=== PATIENT | male | born 1945 | race Caucasian/White ===

== ENCOUNTER → 2017-11-10 | Outpatient (CLI) | payer MEDICARE, OTHER ==
[2017-11-10] MEDS: BARIUM SULF 2% 450 ML BTL (BERRY SMOOTHIE) PO ×2 (10:44)
[2017-11-10] MEDS: SOD CHLORIDE 0.9% 100 ML (12:40)
[2017-11-10] MEDS: IODIXANOL LOCM 100 ML BTL (12:40)
== END | disposition home or self-care (01) ==
LOC: C/S 10:08
DX: R10.31 Right lower quadrant pain (principal); E11.8 Type 2 diabetes mellitus with unspecified complications
CPT/HCPCS: 74177

== ENCOUNTER 2018-01-19 06:37 | Observation (INO) | payer MEDICARE, OTHER ==
[2018-01-19] MEDS ORDERED: SUCCINYLCHOLINE CHLORIDE 100 MG/5 ML SYG IV (08:14)
[2018-01-19] MEDS ORDERED: LIDOCAINE 2% (SDV) 5 ML INJ (08:14)
[2018-01-19] MEDS ORDERED: PROPOFOL 20 ML (08:14)
[2018-01-19] MEDS ORDERED: ROCURONIUM 50 MG INJ (08:14)
[2018-01-19] MEDS ORDERED: ROPIVACAINE 0.5 % 30 ML VIAL (08:15)
[2018-01-19] MEDS ORDERED: FENTAnyl 50 MCG/ML VIAL (08:20)
[2018-01-19] MEDS ORDERED: CEFAZOLIN 1 GM INJ (08:37)
[2018-01-19] MEDS ORDERED: FAMOTIDINE 20 MG INJ (08:37)
[2018-01-19] MEDS ORDERED: ONDANSETRON 4 MG INJ (08:37)
[2018-01-19] MEDS ORDERED: EPHEDrine SULFATE 50 MG/5 ML SYG (08:44)
[2018-01-19] MEDS: BUPIVACAINE 0.25%/EPI (SDV) 10 ML INJ (08:58)
[2018-01-19] MEDS ORDERED: LIDOCAINE 1% (STERILE-PAK) 30 ML INJ (09:02)
[2018-01-19] MEDS ORDERED: GLYCOPYRROLATE 0.4 MG INJ (09:51)
[2018-01-19] MEDS ORDERED: NEOSTIGMINE 3 MG/3 ML SYRINGE (09:51)
[2018-01-19] MEDS ORDERED: FENTAnyl 50 MCG/ML VIAL IV (10:00)
[2018-01-19] MEDS ORDERED: DIPHENHYDRAMINE 50 MG INJ IV (10:00)
[2018-01-19] MEDS ORDERED: PROCHLORPERAZINE 10 MG INJ IV (10:00)
[2018-01-19] MEDS ORDERED: OXYCODONE/ACETAMINOPHEN (5/325) TAB PO (10:00)
[2018-01-19] MEDS ORDERED: MEPERIDINE 25 MG INJ IV (10:00)
[2018-01-19] MEDS ORDERED: KETOROLAC 30 MG INJ (10:02)
[2018-01-19] MEDS ORDERED: ACETAMINOPHEN 325 MG TAB PO (10:30)
[2018-01-19] MEDS ORDERED: ONDANSETRON 4 MG INJ IV (10:30)
[2018-01-19] MEDS: ONDANSETRON 4 MG INJ IV (11:25)
[2018-01-19] MEDS: HYDROmorphONE 1 MG/5 ML IV SYRINGE IV (11:26)
[2018-01-19] MEDS: HYDROCODONE/APAP (5/325) TAB PO ×2 (15:44→23:30)
[2018-01-19] MEDS: NPH, HUMAN INSULIN ISOPHANE 3ML VIAL SC (20:49)
[2018-01-20] MEDS: morphine 4 MG/ML VIAL IV ×2 (01:50→04:32)
[2018-01-20 06:07] LABS: ADD MAN DIFF? NO
[2018-01-20 06:08] LABS: WHITE BLOOD COUNT 10.7 10^3/ul (4.8-10.8)
[2018-01-20 06:08] LABS: BASOPHIL # 0.1 10^3/ul (0.0-0.1); BASOPHILS % 0.5 % (0.0-2.0); EOSINOPHILS # 0.2 10^3/ul (0.0-0.5); EOSINOPHILS % 1.7 % (0.0-7.0); HEMATOCRIT 39.1 % (42.0-52.0); HEMOGLOBIN 12.8 g/dl (14.0-18.0); LYMPHOCYTES # 0.8 10^3/ul (0.8-2.9); LYMPHOCYTES % 7.8 % (15.0-51.0); MEAN CORPUSCULAR HEMOGLOBIN 30.6 pg (29.0-33.0); MEAN CORPUSCULAR HGB CONC 32.7 g/dl (32.0-37.0); MEAN CORPUSCULAR VOLUME 93.5 fl (82.0-101.0); MONOCYTE # 0.9 10^3/ul (0.3-0.9); MONOCYTES % 8.4 % (0.0-11.0); NEUTROPHIL # 8.7 10^3/ul (1.6-7.5); NEUTROPHILS % 81.2 % (39.0-77.0); PLATELET COUNT 328 10^3/UL (140-415); RED BLOOD COUNT 4.18 10^6/ul (4.70-6.10); RED CELL DISTRIBUTION WIDTH 12.7 % (11.5-14.5)
[2018-01-20 07:15] LABS: ANION GAP 9 (5-13); BLOOD UREA NITROGEN 16 mg/dl (7-20); CALCIUM 9.1 mg/dl (8.4-10.2); CARBON DIOXIDE 27 mmol/L (21-31); CHLORIDE 104 mmol/L (97-110); CREATININE 1.03 mg/dl (0.61-1.24); GLUCOSE 242 mg/dl (70-220); POTASSIUM 4.3 mmol/L (3.5-5.1); SODIUM 140 mmol/L (135-144)
[2018-01-20] MEDS: LITHIUM CARBONATE 300 MG CAP PO (08:04)
[2018-01-20] MEDS: IBUPROFEN 600 MG TAB PO ×2 (08:05→17:16)
[2018-01-20] MEDS: NPH, HUMAN INSULIN ISOPHANE 3ML VIAL SC (08:07)
[2018-01-20 08:28] LABS: ADD UMIC NO; UR ASCORBIC ACID NEGATIVE (NEGATIVE); UR BILIRUBIN (Dip) NEGATIVE (NEGATIVE); UR BLOOD (Dip) NEGATIVE (NEGATIVE); UR CLARITY CLEAR (CLEAR); UR COLOR STRAW (YELLOW); UR GLUCOSE (Dip) 3+ mg/dL (NEGATIVE); UR KETONES (Dip) TRACE mg/dL (NEGATIVE); UR LEUKOCYTE ESTERASE (Dip) NEGATIVE Leu/ul (NEGATIVE); UR NITRITE (Dip) NEGATIVE (NEGATIVE); UR SPECIFIC GRAVITY (Dip) 1.012 (1.003-1.030); UR TOTAL PROTEIN (Dip) NEGATIVE (NEGATIVE); UR UROBILINOGEN (Dip) NEGATIVE (NEGATIVE)
[2018-01-20] MEDS: HYDROCODONE/APAP (5/325) TAB PO (13:31)
== END 2018-01-20 18:40 | disposition home or self-care (01) ==
LOC: SDS 06:37 → REC 10:19 → 2NE 11:35
PROVIDERS: Surgery
DX: K40.90 Unilateral inguinal hernia, without obstruction or gangrene, not specified as recurrent (principal); K43.9 Ventral hernia without obstruction or gangrene; E11.9 Type 2 diabetes mellitus without complications; I10 Essential (primary) hypertension; N40.0 Benign prostatic hyperplasia without lower urinary tract symptoms; E78.5 Hyperlipidemia, unspecified; E66.9 Obesity, unspecified; Z68.35 Body mass index [BMI] 35.0-35.9, adult; Z23 Encounter for immunization
CPT/HCPCS: 49650; 80048; 81003; 82962; 85025; 90686; 97162; 99217

== ENCOUNTER 2018-01-30 21:33 | Inpatient (IN) | payer MEDICARE, OTHER ==
[2018-01-30 23:06] LABS: ADD MAN DIFF? NO
[2018-01-30] MEDS: morphine 4 MG/ML VIAL IV ×2 (23:06→23:58)
[2018-01-30] MEDS: ONDANSETRON 4 MG INJ IV ×2 (23:06→23:58)
[2018-01-30] MEDS: SOD CHLORIDE 0.9% 1,000 ML IV (23:07)
[2018-01-30 23:10] LABS: BASOPHILS % 0.4 % (0.0-2.0); EOSINOPHILS # 0.1 10^3/ul (0.0-0.5); EOSINOPHILS % 0.5 % (0.0-7.0); HEMOGLOBIN 11.7 g/dl (14.0-18.0); LYMPHOCYTES # 0.7 10^3/ul (0.8-2.9); LYMPHOCYTES % 6.8 % (15.0-51.0); MEAN CORPUSCULAR HEMOGLOBIN 30.8 pg (29.0-33.0); MEAN CORPUSCULAR HGB CONC 33.4 g/dl (32.0-37.0); MEAN CORPUSCULAR VOLUME 92.1 fl (82.0-101.0); MEAN PLATELET VOLUME 10.3 fl (7.4-10.4); MONOCYTE # 0.5 10^3/ul (0.3-0.9); MONOCYTES % 5.5 % (0.0-11.0); NEUTROPHIL # 8.4 10^3/ul (1.6-7.5); NEUTROPHILS % 86.4 % (39.0-77.0); PLATELET COUNT 331 10^3/UL (140-415); RED CELL DISTRIBUTION WIDTH 12.8 % (11.5-14.5)
[2018-01-30 23:10] LABS: WHITE BLOOD COUNT 9.7 10^3/ul (4.8-10.8)
[2018-01-30 23:30] LABS: INR 1.02; PROTIME 13.5 Sec (11.9-14.9); PT RATIO 1.1
[2018-01-30 23:33] LABS: ALANINE AMINOTRANSFERASE 38 IU/L (13-69); ALBUMIN/GLOBULIN RATIO 1.29; ALKALINE PHOSPHATASE 112 IU/L (42-121); ANION GAP 11 (5-13); ASPARTATE AMINO TRANSFERASE 33 IU/L (15-46); BILIRUBIN,INDIRECT 0.8 mg/dl (0-1.1); BILIRUBIN,TOTAL 0.8 mg/dl (0.2-1.3); BLOOD UREA NITROGEN 24 mg/dl (7-20); CALCIUM 9.6 mg/dl (8.4-10.2); CARBON DIOXIDE 23 mmol/L (21-31); CHLORIDE 106 mmol/L (97-110); LIPASE 114 U/L (23-300); POTASSIUM 4.7 mmol/L (3.5-5.1); SODIUM 140 mmol/L (135-144); TOTAL PROTEIN 7.1 g/dl (6.1-8.1)
[2018-01-30 23:43] LABS: GLUCOSE 429 mg/dl (70-220); TROPONIN-I 0.017 ng/ml (0.000-0.120)
[2018-01-31] MEDS: morphine 4 MG/ML VIAL IV (02:10)
[2018-01-31] MEDS: PHENAZOPYRIDINE 100 MG TAB PO (02:27)
[2018-01-31] MEDS: HYDROCODONE/APAP (5/325) TAB PO ×2 (04:50→20:28)
[2018-01-31] MEDS ORDERED: GLUCOSE GEL 15 GRAM TUBE BUCCAL (05:00)
[2018-01-31] MEDS ORDERED: DEXTROSE 50% 50 ML SYRINGE IV (05:00)
[2018-01-31] MEDS ORDERED: ONDANSETRON 4 MG TAB PO (05:00)
[2018-01-31] MEDS ORDERED: GLUCAGON 1 MG INJ IM (05:00)
[2018-01-31] MEDS ORDERED: NACL 0.9% 3 ML SYG IV (05:00)
[2018-01-31] MEDS ORDERED: GLUCOSE GEL 15 GRAM TUBE PO ×2 (05:00)
[2018-01-31 06:59] LABS: INR 0.97
[2018-01-31 07:00] LABS: PARTIAL THROMBOPLASTIN TIME 22.1 Sec (23.0-35.0); THROMBIN TIME 16.9 SEC (13.8-19.1)
[2018-01-31 07:02] LABS: INR 0.99; PROTIME 13.2 Sec (11.9-14.9)
[2018-01-31 07:14] LABS: PLATELET COUNT 359 10^3/UL (140-415)
[2018-01-31] MEDS: AMLODIPINE 5 MG TAB PO (08:40)
[2018-01-31] MEDS: LISINOPRIL 10 MG TAB PO (08:40)
[2018-01-31] MEDS: ATENOLOL 25 MG TAB PO (08:41)
[2018-01-31] MEDS: LITHIUM CARBONATE 300 MG CAP PO (08:41)
[2018-01-31] MEDS: FAMOTIDINE 20 MG TAB PO ×2 (08:42→20:28)
[2018-01-31] MEDS: NPH, HUMAN INSULIN ISOPHANE 3ML VIAL SC ×2 (08:52→20:41)
[2018-01-31 08:53] LABS: PARTIAL THROMBOPLASTIN TIME > 180.0 Sec (23.0-35.0)
[2018-01-31] MEDS: INSULIN ASPART [NOVOLOG] 3 ML PEN SC ×7 (08:53→20:30)
[2018-01-31] MEDS: ACCU-CHEK XX ×3 (10:00→20:31)
[2018-01-31] MEDS: ACETAMINOPHEN 325 MG TAB PO (12:47)
[2018-01-31] MEDS: TAMSULOSIN (SR) 0.4 MG CAP PO (20:28)
[2018-01-31] MEDS: ATORVASTATIN 40 MG TAB PO (20:28)
[2018-01-31] MEDS: ZOLPIDEM 5 MG TAB PO (20:28)
[2018-02-01] MEDS: ACCU-CHEK XX ×4 (01:51→20:00)
[2018-02-01] MEDS: DEXTROSE 50% 50 ML SYRINGE IV (01:58)
[2018-02-01 05:35] LABS: ADD MAN DIFF? NO
[2018-02-01 05:57] LABS: BASOPHILS % 0.4 % (0.0-2.0); EOSINOPHILS # 0.4 10^3/ul (0.0-0.5); EOSINOPHILS % 3.8 % (0.0-7.0); HEMATOCRIT 28.8 % (42.0-52.0); HEMOGLOBIN 9.3 g/dl (14.0-18.0); LYMPHOCYTES # 1.5 10^3/ul (0.8-2.9); LYMPHOCYTES % 14.7 % (15.0-51.0); MEAN CORPUSCULAR HGB CONC 32.3 g/dl (32.0-37.0); MEAN PLATELET VOLUME 9.3 fl (7.4-10.4); MONOCYTE # 0.9 10^3/ul (0.3-0.9); MONOCYTES % 9.3 % (0.0-11.0); NEUTROPHIL # 7.1 10^3/ul (1.6-7.5); NEUTROPHILS % 71.5 % (39.0-77.0); PLATELET COUNT 286 10^3/UL (140-415); RED CELL DISTRIBUTION WIDTH 13.2 % (11.5-14.5)
[2018-02-01 06:30] LABS: ALANINE AMINOTRANSFERASE 29 IU/L (13-69); ALBUMIN 3.1 g/dl (3.3-4.9); ALBUMIN/GLOBULIN RATIO 1.14; ALKALINE PHOSPHATASE 78 IU/L (42-121); ANION GAP 7 (5-13); ASPARTATE AMINO TRANSFERASE 25 IU/L (15-46); BILIRUBIN,INDIRECT 0.8 mg/dl (0-1.1); BILIRUBIN,TOTAL 0.8 mg/dl (0.2-1.3); BLOOD UREA NITROGEN 29 mg/dl (7-20); CARBON DIOXIDE 28 mmol/L (21-31); CHLORIDE 106 mmol/L (97-110); CREATININE 1.05 mg/dl (0.61-1.24); GLUCOSE 94 mg/dl (70-220); POTASSIUM 4.2 mmol/L (3.5-5.1); SODIUM 141 mmol/L (135-144); TOTAL PROTEIN 5.8 g/dl (6.1-8.1)
[2018-02-01 06:50] LABS: HEMOGLOBIN A1C 7.5 % (0-5.9)
[2018-02-01] MEDS: INSULIN ASPART [NOVOLOG] 3 ML PEN SC ×7 (08:00→20:45)
[2018-02-01] MEDS: LISINOPRIL 10 MG TAB PO (08:41)
[2018-02-01] MEDS: LITHIUM CARBONATE 300 MG CAP PO (08:42)
[2018-02-01] MEDS: AMLODIPINE 5 MG TAB PO (08:42)
[2018-02-01] MEDS: FAMOTIDINE 20 MG TAB PO ×2 (08:42→20:45)
[2018-02-01] MEDS: ATENOLOL 25 MG TAB PO (08:42)
[2018-02-01] MEDS: NPH, HUMAN INSULIN ISOPHANE 3ML VIAL SC ×2 (08:47→21:17)
[2018-02-01] MEDS: TAMSULOSIN (SR) 0.4 MG CAP PO (20:44)
[2018-02-01] MEDS: FERROUS SULFATE (EC) 325 MG TAB PO (20:44)
[2018-02-01] MEDS: ATORVASTATIN 40 MG TAB PO (20:45)
[2018-02-01] MEDS: HYDROCODONE/APAP (5/325) TAB PO ×2 (21:58→22:51)
[2018-02-02] MEDS: ACCU-CHEK XX ×4 (01:37→20:43)
[2018-02-02 05:30] LABS: ADD MAN DIFF? NO
[2018-02-02 05:44] LABS: WHITE BLOOD COUNT 12.3 10^3/ul (4.8-10.8)
[2018-02-02 05:44] LABS: BASOPHILS % 0.3 % (0.0-2.0); EOSINOPHILS # 0.4 10^3/ul (0.0-0.5); EOSINOPHILS % 3.1 % (0.0-7.0); HEMATOCRIT 27.7 % (42.0-52.0); LYMPHOCYTES # 1.4 10^3/ul (0.8-2.9); LYMPHOCYTES % 11.3 % (15.0-51.0); MEAN CORPUSCULAR HEMOGLOBIN 30.9 pg (29.0-33.0); MEAN CORPUSCULAR HGB CONC 32.5 g/dl (32.0-37.0); MEAN CORPUSCULAR VOLUME 95.2 fl (82.0-101.0); MEAN PLATELET VOLUME 9.2 fl (7.4-10.4); MONOCYTE # 1.3 10^3/ul (0.3-0.9); MONOCYTES % 10.7 % (0.0-11.0); NEUTROPHIL # 9.1 10^3/ul (1.6-7.5); NEUTROPHILS % 74.4 % (39.0-77.0); PLATELET COUNT 276 10^3/UL (140-415); RED BLOOD COUNT 2.91 10^6/ul (4.70-6.10); RED CELL DISTRIBUTION WIDTH 12.8 % (11.5-14.5)
[2018-02-02] MEDS: DOCUSATE SODIUM 100 MG CAP PO (06:08)
[2018-02-02] MEDS: INSULIN ASPART [NOVOLOG] 3 ML PEN SC ×7 (07:52→20:43)
[2018-02-02] MEDS: NPH, HUMAN INSULIN ISOPHANE 3ML VIAL SC ×2 (07:55→20:49)
[2018-02-02] MEDS: FERROUS SULFATE (EC) 325 MG TAB PO ×2 (09:22→20:42)
[2018-02-02] MEDS: FAMOTIDINE 20 MG TAB PO ×2 (09:22→20:42)
[2018-02-02] MEDS: LISINOPRIL 10 MG TAB PO (09:22)
[2018-02-02] MEDS: LITHIUM CARBONATE 300 MG CAP PO (09:22)
[2018-02-02] MEDS: ATENOLOL 25 MG TAB PO (09:23)
[2018-02-02] MEDS: AMLODIPINE 5 MG TAB PO (09:23)
[2018-02-02 12:43] LABS: ADD UMIC YES; UR ASCORBIC ACID NEGATIVE (NEGATIVE); UR BILIRUBIN (Dip) NEGATIVE (NEGATIVE); UR BLOOD (Dip) 3+ mg/dL (NEGATIVE); UR CLARITY CLEAR (CLEAR); UR COLOR STRAW (YELLOW); UR GLUCOSE (Dip) NEGATIVE (NEGATIVE); UR KETONES (Dip) NEGATIVE (NEGATIVE); UR LEUKOCYTE ESTERASE (Dip) TRACE Leu/ul (NEGATIVE); UR NITRITE (Dip) NEGATIVE (NEGATIVE); UR RBC > 182 /HPF (0-5); UR SPECIFIC GRAVITY (Dip) 1.004 (1.003-1.030); UR TOTAL PROTEIN (Dip) NEGATIVE (NEGATIVE); UR UROBILINOGEN (Dip) NEGATIVE (NEGATIVE); UR WBC 14 /HPF (0-5)
[2018-02-02] MEDS: HYDROCODONE/APAP (5/325) TAB PO (13:30)
[2018-02-02] MEDS: ATORVASTATIN 40 MG TAB PO (20:42)
[2018-02-02] MEDS: TAMSULOSIN (SR) 0.4 MG CAP PO (20:42)
[2018-02-03] MEDS: ACCU-CHEK XX ×4 (02:00→20:56)
[2018-02-03] MEDS: DOCUSATE SODIUM 100 MG CAP PO ×2 (02:06→20:35)
[2018-02-03] MEDS: HYDROCODONE/APAP (5/325) TAB PO (05:56)
[2018-02-03 06:13] LABS: ADD MAN DIFF? NO
[2018-02-03 06:22] LABS: HEMATOCRIT 30.3 % (42.0-52.0); HEMOGLOBIN 9.9 g/dl (14.0-18.0); RED BLOOD COUNT 3.18 10^6/ul (4.70-6.10)
[2018-02-03 06:23] LABS: BASOPHILS % 0.4 % (0.0-2.0); EOSINOPHILS # 0.4 10^3/ul (0.0-0.5); EOSINOPHILS % 3.2 % (0.0-7.0); LYMPHOCYTES # 1.2 10^3/ul (0.8-2.9); LYMPHOCYTES % 10.9 % (15.0-51.0); MEAN CORPUSCULAR HEMOGLOBIN 31.1 pg (29.0-33.0); MEAN CORPUSCULAR HGB CONC 32.7 g/dl (32.0-37.0); MEAN CORPUSCULAR VOLUME 95.3 fl (82.0-101.0); MEAN PLATELET VOLUME 9.2 fl (7.4-10.4); MONOCYTES % 8.9 % (0.0-11.0); NEUTROPHIL # 8.4 10^3/ul (1.6-7.5); NEUTROPHILS % 76.2 % (39.0-77.0); PLATELET COUNT 308 10^3/UL (140-415); RED CELL DISTRIBUTION WIDTH 12.6 % (11.5-14.5)
[2018-02-03 07:02] LABS: ADD UMIC YES; UR ASCORBIC ACID NEGATIVE (NEGATIVE); UR BACTERIA FEW /HPF (NONE SEEN); UR BILIRUBIN (Dip) NEGATIVE (NEGATIVE); UR BLOOD (Dip) 3+ mg/dL (NEGATIVE); UR CLARITY CLEAR (CLEAR); UR COLOR STRAW (YELLOW); UR GLUCOSE (Dip) NEGATIVE (NEGATIVE); UR KETONES (Dip) NEGATIVE (NEGATIVE); UR LEUKOCYTE ESTERASE (Dip) TRACE Leu/ul (NEGATIVE); UR NITRITE (Dip) NEGATIVE (NEGATIVE); UR RBC > 182 /HPF (0-5); UR SPECIFIC GRAVITY (Dip) 1.005 (1.003-1.030); UR TOTAL PROTEIN (Dip) NEGATIVE (NEGATIVE); UR UROBILINOGEN (Dip) NEGATIVE (NEGATIVE); UR WBC 7 /HPF (0-5)
[2018-02-03] MEDS: NPH, HUMAN INSULIN ISOPHANE 3ML VIAL SC ×2 (07:47→20:54)
[2018-02-03] MEDS: INSULIN ASPART [NOVOLOG] 3 ML PEN SC ×7 (07:48→20:54)
[2018-02-03] MEDS: FAMOTIDINE 20 MG TAB PO ×2 (09:34→20:31)
[2018-02-03] MEDS: LITHIUM CARBONATE 300 MG CAP PO (09:34)
[2018-02-03] MEDS: FERROUS SULFATE (EC) 325 MG TAB PO ×2 (09:34→20:31)
[2018-02-03] MEDS: ATENOLOL 25 MG TAB PO (09:34)
[2018-02-03] MEDS: LISINOPRIL 10 MG TAB PO (09:35)
[2018-02-03] MEDS: AMLODIPINE 5 MG TAB PO (09:35)
[2018-02-03] MEDS ORDERED: BISMUTH SUBSALICYLATE PO (11:30)
[2018-02-03] MEDS ORDERED: BISMUTH SUBSALICYLATE 240 ML BTL PO (14:30)
[2018-02-03] MEDS: TAMSULOSIN (SR) 0.4 MG CAP PO (20:31)
[2018-02-03] MEDS: ATORVASTATIN 40 MG TAB PO (20:31)
[2018-02-04] MEDS: HYDROCODONE/APAP (5/325) TAB PO (01:28)
[2018-02-04] MEDS: ACCU-CHEK XX ×3 (02:30→14:00)
[2018-02-04 06:50] LABS: ALANINE AMINOTRANSFERASE 24 IU/L (13-69); ALBUMIN/GLOBULIN RATIO 1.03; ALKALINE PHOSPHATASE 91 IU/L (42-121); ANION GAP 6 (5-13); ASPARTATE AMINO TRANSFERASE 17 IU/L (15-46); BILIRUBIN,INDIRECT 0.9 mg/dl (0-1.1); BILIRUBIN,TOTAL 0.9 mg/dl (0.2-1.3); BLOOD UREA NITROGEN 22 mg/dl (7-20); CALCIUM 8.9 mg/dl (8.4-10.2); CARBON DIOXIDE 28 mmol/L (21-31); CHLORIDE 104 mmol/L (97-110); CREATININE 0.94 mg/dl (0.61-1.24); GLUCOSE 172 mg/dl (70-220); POTASSIUM 4.9 mmol/L (3.5-5.1); SODIUM 138 mmol/L (135-144); TOTAL PROTEIN 5.9 g/dl (6.1-8.1)
[2018-02-04] MEDS: FERROUS SULFATE (EC) 325 MG TAB PO (08:03)
[2018-02-04] MEDS: LITHIUM CARBONATE 300 MG CAP PO (08:03)
[2018-02-04] MEDS: ATENOLOL 25 MG TAB PO (08:04)
[2018-02-04] MEDS: LISINOPRIL 10 MG TAB PO (08:04)
[2018-02-04] MEDS: FAMOTIDINE 20 MG TAB PO (08:04)
[2018-02-04] MEDS: AMLODIPINE 5 MG TAB PO (08:04)
[2018-02-04] MEDS: NPH, HUMAN INSULIN ISOPHANE 3ML VIAL SC (08:10)
[2018-02-04] MEDS: INSULIN ASPART [NOVOLOG] 3 ML PEN SC ×6 (08:11→17:21)
== END 2018-02-04 19:35 | disposition home or self-care (01) | DRG 696 ==
LOC: E/R 21:33 → 6WM 01-31 01:59
PROC: 0T2BX0Z Change Drainage Device in Bladder, External Approach (ICD-10-PCS; principal; 2018-01-31)
DX: R31.0 Gross hematuria (principal); D62 Acute posthemorrhagic anemia; E11.65 Type 2 diabetes mellitus with hyperglycemia; I10 Essential (primary) hypertension; E78.00 Pure hypercholesterolemia, unspecified; I25.10 Atherosclerotic heart disease of native coronary artery without angina pectoris; K59.00 Constipation, unspecified; N40.0 Benign prostatic hyperplasia without lower urinary tract symptoms; F31.9 Bipolar disorder, unspecified; Z79.02 Long term (current) use of antithrombotics/antiplatelets; Z95.5 Presence of coronary angioplasty implant and graft; Z79.4 Long term (current) use of insulin
CPT/HCPCS: 36415; 74176; 80053; 81001; 82962; 83036; 83690; 84484; 85025; 85049; 85610; 85670; 85730; 87081; 88104; 88107; 93005; 96374; 96375; 96376; 97162; 99285-25; G0378

== ENCOUNTER 2018-02-06 23:11 | Inpatient (IN) | payer MEDICARE, OTHER ==
[2018-02-06] MEDS: SODIUM CHLORIDE 0.9% 1L BAG IV* (23:44)
[2018-02-06] MEDS: CEFEPIME 2GM/50 ML (PMX) 50 ML IVPB (23:44)
[2018-02-06 23:45] LABS: ADD MAN DIFF? NO
[2018-02-06] MEDS: ONDANSETRON 4 MG INJ IV (23:45)
[2018-02-06] MEDS: morphine 4 MG/ML VIAL IV (23:45)
[2018-02-06] MEDS: ACETAMINOPHEN 325 MG TAB PO (23:46)
[2018-02-06 23:47] LABS: WHITE BLOOD COUNT 15.6 10^3/ul (4.8-10.8)
[2018-02-06 23:47] LABS: BASOPHIL # 0.1 10^3/ul (0.0-0.1); BASOPHILS % 0.3 % (0.0-2.0); EOSINOPHILS # 0.1 10^3/ul (0.0-0.5); EOSINOPHILS % 0.4 % (0.0-7.0); HEMATOCRIT 27.7 % (42.0-52.0); HEMOGLOBIN 9.1 g/dl (14.0-18.0); LYMPHOCYTES # 0.8 10^3/ul (0.8-2.9); LYMPHOCYTES % 5.2 % (15.0-51.0); MEAN CORPUSCULAR HEMOGLOBIN 30.8 pg (29.0-33.0); MEAN CORPUSCULAR HGB CONC 32.9 g/dl (32.0-37.0); MEAN CORPUSCULAR VOLUME 93.9 fl (82.0-101.0); MEAN PLATELET VOLUME 9.3 fl (7.4-10.4); MONOCYTE # 1.4 10^3/ul (0.3-0.9); MONOCYTES % 8.8 % (0.0-11.0); NEUTROPHIL # 13.2 10^3/ul (1.6-7.5); NEUTROPHILS % 84.7 % (39.0-77.0); PLATELET COUNT 439 10^3/UL (140-415); RED BLOOD COUNT 2.95 10^6/ul (4.70-6.10); RED CELL DISTRIBUTION WIDTH 12.6 % (11.5-14.5)
[2018-02-07 00:05] LABS: ALANINE AMINOTRANSFERASE 20 IU/L (13-69); ALBUMIN 3.4 g/dl (3.3-4.9); ALBUMIN/GLOBULIN RATIO 1.13; ALKALINE PHOSPHATASE 126 IU/L (42-121); ANION GAP 17 (5-13); ASPARTATE AMINO TRANSFERASE 17 IU/L (15-46); BILIRUBIN,INDIRECT 1.1 mg/dl (0-1.1); BILIRUBIN,TOTAL 1.1 mg/dl (0.2-1.3); BLOOD UREA NITROGEN 25 mg/dl (7-20); CALCIUM 9.2 mg/dl (8.4-10.2); CARBON DIOXIDE 20 mmol/L (21-31); CHLORIDE 99 mmol/L (97-110); CREATININE 1.17 mg/dl (0.61-1.24); POTASSIUM 4.8 mmol/L (3.5-5.1); SODIUM 136 mmol/L (135-144); TOTAL PROTEIN 6.4 g/dl (6.1-8.1)
[2018-02-07 00:06] LABS: INR 1.04; PROTIME 13.7 Sec (11.9-14.9); PT RATIO 1.1
[2018-02-07 00:07] LABS: PARTIAL THROMBOPLASTIN TIME 26.9 Sec (23.0-35.0)
[2018-02-07 00:13] LABS: GLUCOSE 468 mg/dl (70-220)
[2018-02-07 00:16] LABS: TROPONIN-I < 0.012 ng/ml (0.000-0.120)
[2018-02-07 00:29] LABS: ADD UMIC YES; UR ASCORBIC ACID NEGATIVE (NEGATIVE); UR BILIRUBIN (Dip) NEGATIVE (NEGATIVE); UR GLUCOSE (Dip) 3+ mg/dL (NEGATIVE); UR KETONES (Dip) TRACE mg/dL (NEGATIVE); UR LEUKOCYTE ESTERASE (Dip) NEGATIVE Leu/ul (NEGATIVE); UR NITRITE (Dip) NEGATIVE (NEGATIVE); UR TOTAL PROTEIN (Dip) 3+ mg/dl (NEGATIVE); UR UROBILINOGEN (Dip) NEGATIVE (NEGATIVE)
[2018-02-07] MEDS: VANCOMYCIN 1 GM (PMX) 250 ML IVPB (00:46)
[2018-02-07 01:00] LABS: UR BLOOD (Dip) 3+ mg/dL (NEGATIVE); UR CLARITY TURBID (CLEAR); UR COLOR RED (YELLOW); UR RBC > 182 /HPF (0-5); UR WBC 132 /HPF (0-5)
[2018-02-07] MEDS ORDERED: GLUCOSE GEL 15 GRAM TUBE BUCCAL (04:30)
[2018-02-07] MEDS ORDERED: DOCUSATE SODIUM 100 MG CAP PO (04:30)
[2018-02-07] MEDS ORDERED: LORAZEPAM 0.5 MG TAB PO (04:30)
[2018-02-07] MEDS ORDERED: GLUCAGON 1 MG INJ IM (04:30)
[2018-02-07] MEDS ORDERED: DEXTROSE 50% 50 ML SYRINGE IV ×2 (04:30)
[2018-02-07] MEDS ORDERED: NACL 0.9% 3 ML SYG IV (04:30)
[2018-02-07] MEDS ORDERED: GLUCOSE GEL 15 GRAM TUBE PO ×2 (04:30)
[2018-02-07] MEDS ORDERED: ONDANSETRON 4 MG TAB PO (04:30)
[2018-02-07] MEDS: FOSFOMYCIN 3 GM PACKET PO (05:24)
[2018-02-07] MEDS: INSULIN ASPART [NOVOLOG] 3 ML PEN SC ×7 (07:54→21:26)
[2018-02-07] MEDS: INSULIN GLARGINE [LANTus] (100 UNITS/ML) SYG SC (07:55)
[2018-02-07] MEDS: ENOXAPARIN 40 MG/0.4 ML SYG SC (09:00)
[2018-02-07 09:16] LABS: LACTIC ACID 1.3 mmol/L (0.5-2.0)
[2018-02-07] MEDS: LISINOPRIL 10 MG TAB PO (09:42)
[2018-02-07] MEDS: ATENOLOL 25 MG TAB PO (09:42)
[2018-02-07] MEDS: ASPIRIN 81 MG TAB PO (09:42)
[2018-02-07] MEDS: AMLODIPINE 5 MG TAB PO (09:42)
[2018-02-07] MEDS: LITHIUM CARBONATE 300 MG CAP PO (09:42)
[2018-02-07] MEDS: FAMOTIDINE 20 MG TAB PO ×2 (09:42→20:52)
[2018-02-07] MEDS: CEFEPIME 2GM/50 ML (PMX) 50 ML IVPB ×2 (09:43→21:21)
[2018-02-07] MEDS: HYDROCODONE/APAP (5/325) TAB PO (09:52)
[2018-02-07] MEDS: ACCU-CHEK XX ×3 (10:05→20:02)
[2018-02-07 10:47] LABS: ADD UMIC YES; UR ASCORBIC ACID NEGATIVE (NEGATIVE); UR BILIRUBIN (Dip) NEGATIVE (NEGATIVE); UR BLOOD (Dip) 3+ mg/dL (NEGATIVE); UR CLARITY CLOUDY (CLEAR); UR COLOR AMBER (YELLOW); UR GLUCOSE (Dip) 3+ mg/dL (NEGATIVE); UR KETONES (Dip) TRACE mg/dL (NEGATIVE); UR LEUKOCYTE ESTERASE (Dip) NEGATIVE Leu/ul (NEGATIVE); UR NITRITE (Dip) NEGATIVE (NEGATIVE); UR SPECIFIC GRAVITY (Dip) 1.027 (1.003-1.030); UR TOTAL PROTEIN (Dip) 3+ mg/dl (NEGATIVE); UR UROBILINOGEN (Dip) NEGATIVE (NEGATIVE); URINE RBCS >200 /HPF (0)
[2018-02-07] MEDS: SOD CHLORIDE 0.9% 250 ML IV* (12:37)
[2018-02-07] MEDS: ACETAMINOPHEN 325 MG TAB PO (13:54)
[2018-02-07] MEDS: NPH, HUMAN INSULIN ISOPHANE 3ML VIAL SC (20:00)
[2018-02-07] MEDS: ATORVASTATIN 40 MG TAB PO (20:52)
[2018-02-07] MEDS: TAMSULOSIN (SR) 0.4 MG CAP PO (20:52)
[2018-02-08] MEDS: ACCU-CHEK XX ×4 (02:00→20:05)
[2018-02-08 06:44] LABS: ADD MAN DIFF? NO
[2018-02-08] MEDS ORDERED: NEOSTIGMINE 3 MG/3 ML SYRINGE (07:00)
[2018-02-08] MEDS ORDERED: FENTAnyl 50 MCG/ML VIAL (07:00)
[2018-02-08] MEDS ORDERED: ROCURONIUM 50 MG INJ (07:00)
[2018-02-08] MEDS ORDERED: CEFAZOLIN 1 GM INJ (07:00)
[2018-02-08] MEDS ORDERED: LIDOCAINE 2% (SDV) 5 ML INJ (07:00)
[2018-02-08] MEDS ORDERED: ONDANSETRON 4 MG INJ (07:00)
[2018-02-08] MEDS ORDERED: PROPOFOL 200 MG INJ (07:00)
[2018-02-08] MEDS ORDERED: GLYCOPYRROLATE 0.4 MG INJ (07:00)
[2018-02-08 07:03] LABS: BASOPHILS % 0.3 % (0.0-2.0); EOSINOPHILS # 0.1 10^3/ul (0.0-0.5); EOSINOPHILS % 0.6 % (0.0-7.0); HEMATOCRIT 25.6 % (42.0-52.0); HEMOGLOBIN 8.4 g/dl (14.0-18.0); LYMPHOCYTES # 0.9 10^3/ul (0.8-2.9); LYMPHOCYTES % 5.5 % (15.0-51.0); MEAN CORPUSCULAR HEMOGLOBIN 30.8 pg (29.0-33.0); MEAN CORPUSCULAR HGB CONC 32.8 g/dl (32.0-37.0); MEAN CORPUSCULAR VOLUME 93.8 fl (82.0-101.0); MEAN PLATELET VOLUME 9.3 fl (7.4-10.4); MONOCYTE # 1.5 10^3/ul (0.3-0.9); MONOCYTES % 9.4 % (0.0-11.0); NEUTROPHIL # 13.1 10^3/ul (1.6-7.5); NEUTROPHILS % 83.6 % (39.0-77.0); PLATELET COUNT 385 10^3/UL (140-415); RED BLOOD COUNT 2.73 10^6/ul (4.70-6.10); RED CELL DISTRIBUTION WIDTH 13.5 % (11.5-14.5)
[2018-02-08 07:03] LABS: WHITE BLOOD COUNT 15.6 10^3/ul (4.8-10.8)
[2018-02-08 07:32] LABS: ALANINE AMINOTRANSFERASE 19 IU/L (13-69); ALBUMIN 2.9 g/dl (3.3-4.9); ALBUMIN/GLOBULIN RATIO 1.07; ALKALINE PHOSPHATASE 106 IU/L (42-121); ANION GAP 11 (5-13); ASPARTATE AMINO TRANSFERASE 14 IU/L (15-46); BILIRUBIN,INDIRECT 1.2 mg/dl (0-1.1); BILIRUBIN,TOTAL 1.2 mg/dl (0.2-1.3); BLOOD UREA NITROGEN 21 mg/dl (7-20); CALCIUM 8.7 mg/dl (8.4-10.2); CARBON DIOXIDE 25 mmol/L (21-31); CHLORIDE 103 mmol/L (97-110); CREATININE 1.09 mg/dl (0.61-1.24); GLUCOSE 268 mg/dl (70-220); POTASSIUM 4.7 mmol/L (3.5-5.1); SODIUM 139 mmol/L (135-144); TOTAL PROTEIN 5.6 g/dl (6.1-8.1)
[2018-02-08] MEDS: INSULIN ASPART [NOVOLOG] 3 ML PEN SC ×8 (07:35→21:26)
[2018-02-08 07:45] LABS: HEMOGLOBIN A1C 7.1 % (0-5.9)
[2018-02-08] MEDS: LISINOPRIL 10 MG TAB PO ×2 (08:36→21:22)
[2018-02-08] MEDS: AMLODIPINE 5 MG TAB PO (08:37)
[2018-02-08] MEDS: CEFEPIME 2GM/50 ML (PMX) 50 ML IVPB (08:37)
[2018-02-08] MEDS: FAMOTIDINE 20 MG TAB PO ×2 (08:37→21:17)
[2018-02-08] MEDS: LITHIUM CARBONATE 300 MG CAP PO (08:37)
[2018-02-08] MEDS: NPH, HUMAN INSULIN ISOPHANE 3ML VIAL SC ×2 (08:37→21:24)
[2018-02-08] MEDS: ATENOLOL 25 MG TAB PO (08:37)
[2018-02-08] MEDS: ASPIRIN 81 MG TAB PO (08:38)
[2018-02-08 14:54] LABS: IMMEDIATE SPIN CROSSMATCH 1 4
[2018-02-08] MEDS ORDERED: HYDROCODONE/APAP (5/325) TAB PO (15:30)
[2018-02-08] MEDS: HYDROmorphONE 1 MG/5 ML IV SYRINGE IV ×2 (15:51→16:01)
[2018-02-08] MEDS: ONDANSETRON 4 MG INJ IV (15:51)
[2018-02-08] MEDS ORDERED: DIPHENHYDRAMINE 50 MG INJ IV (16:00)
[2018-02-08] MEDS ORDERED: FENTAnyl 50 MCG/ML VIAL IV ×3 (16:00)
[2018-02-08] MEDS ORDERED: LORAZEPAM 2 MG INJ IV ×2 (16:00→17:14)
[2018-02-08] MEDS ORDERED: LABETALOL HCL 20MG INJ IV (16:00)
[2018-02-08] MEDS ORDERED: OXYCODONE/ACETAMINOPHEN (5/325) TAB PO ×2 (16:00)
[2018-02-08] MEDS ORDERED: hydrALAzine 20 MG INJ IV (16:00)
[2018-02-08] MEDS ORDERED: METOCLOPRAMIDE 10 MG INJ IV (16:00)
[2018-02-08] MEDS ORDERED: MEPERIDINE 25 MG INJ IV (16:00)
[2018-02-08] MEDS ORDERED: HYDROmorphONE 1 MG/5 ML IV SYRINGE IV (16:00)
[2018-02-08] MEDS ORDERED: EPHEDrine SULFATE 50 MG/5 ML SYG IV (16:00)
[2018-02-08] MEDS: CEFTRIAXONE 1 GM/50 ML (PMX) 50 ML IVPB (16:18)
[2018-02-08] MEDS: DEXTROSE 5%-0.45% NACL 1,000 ML IV (16:57)
[2018-02-08] MEDS: LORAZEPAM 4 MG/ML VIAL IV (17:24)
[2018-02-08] MEDS ORDERED: HALOPERIDOL 5 MG INJ IM (18:30)
[2018-02-08] MEDS: LACTATED RINGER'S 1,000 ML IV (18:31)
[2018-02-08] MEDS: ATORVASTATIN 40 MG TAB PO (21:17)
[2018-02-08] MEDS: DOCUSATE SODIUM 100 MG CAP PO (21:19)
[2018-02-09] MEDS: ACCU-CHEK XX ×4 (02:00→20:56)
[2018-02-09 05:16] LABS: ADD MAN DIFF? NO
[2018-02-09 05:32] LABS: WHITE BLOOD COUNT 13.8 10^3/ul (4.8-10.8)
[2018-02-09 05:32] LABS: BASOPHILS % 0.3 % (0.0-2.0); EOSINOPHILS % 0.1 % (0.0-7.0); HEMATOCRIT 27.4 % (42.0-52.0); HEMOGLOBIN 9.3 g/dl (14.0-18.0); LYMPHOCYTES # 0.7 10^3/ul (0.8-2.9); LYMPHOCYTES % 4.8 % (15.0-51.0); MEAN CORPUSCULAR HEMOGLOBIN 30.6 pg (29.0-33.0); MEAN CORPUSCULAR HGB CONC 33.9 g/dl (32.0-37.0); MEAN CORPUSCULAR VOLUME 90.1 fl (82.0-101.0); MEAN PLATELET VOLUME 9.3 fl (7.4-10.4); MONOCYTE # 0.9 10^3/ul (0.3-0.9); MONOCYTES % 6.6 % (0.0-11.0); NEUTROPHIL # 12.1 10^3/ul (1.6-7.5); NEUTROPHILS % 87.5 % (39.0-77.0); PLATELET COUNT 368 10^3/UL (140-415); RED BLOOD COUNT 3.04 10^6/ul (4.70-6.10); RED CELL DISTRIBUTION WIDTH 13.9 % (11.5-14.5)
[2018-02-09 06:32] LABS: ANION GAP 8 (5-13); BLOOD UREA NITROGEN 21 mg/dl (7-20); CALCIUM 8.6 mg/dl (8.4-10.2); CARBON DIOXIDE 25 mmol/L (21-31); CHLORIDE 106 mmol/L (97-110); CREATININE 0.98 mg/dl (0.61-1.24); GLUCOSE 227 mg/dl (70-220); POTASSIUM 4.9 mmol/L (3.5-5.1); SODIUM 139 mmol/L (135-144)
[2018-02-09 06:40] LABS: LITHIUM 0.4 mmol/L (0.6-1.3)
[2018-02-09] MEDS: INSULIN ASPART [NOVOLOG] 3 ML PEN SC ×7 (08:06→20:56)
[2018-02-09] MEDS: NPH, HUMAN INSULIN ISOPHANE 3ML VIAL SC ×2 (08:08→20:38)
[2018-02-09] MEDS: ASPIRIN 81 MG TAB PO (08:54)
[2018-02-09] MEDS: ATENOLOL 25 MG TAB PO (08:54)
[2018-02-09] MEDS: DOCUSATE SODIUM 100 MG CAP PO ×2 (08:54→20:54)
[2018-02-09] MEDS: LISINOPRIL 10 MG TAB PO ×2 (08:54→20:55)
[2018-02-09] MEDS: CEPASTAT LOZENGE MT (08:55)
[2018-02-09] MEDS: LITHIUM CARBONATE 300 MG CAP PO (08:55)
[2018-02-09] MEDS: FAMOTIDINE 20 MG TAB PO ×2 (08:58→20:55)
[2018-02-09] MEDS: MAGNESIUM HYDROXIDE 30ML CUP PO (08:58)
[2018-02-09] MEDS: AMLODIPINE 2.5 MG TAB PO (09:13)
[2018-02-09] MEDS: LITHIUM CARBONATE 150 MG CAP PO (10:23)
[2018-02-09] MEDS: LACTATED RINGER'S 1,000 ML IV (14:51)
[2018-02-09] MEDS: CEFTRIAXONE 1 GM/50 ML (PMX) 50 ML IVPB (15:28)
[2018-02-09] MEDS: ATORVASTATIN 40 MG TAB PO (20:55)
[2018-02-10] MEDS: ACCU-CHEK XX ×4 (02:00→20:00)
[2018-02-10 07:17] LABS: ADD MAN DIFF? NO
[2018-02-10 07:24] LABS: WHITE BLOOD COUNT 8.2 10^3/ul (4.8-10.8)
[2018-02-10 07:24] LABS: BASOPHILS % 0.5 % (0.0-2.0); EOSINOPHILS # 0.7 10^3/ul (0.0-0.5); EOSINOPHILS % 8.8 % (0.0-7.0); HEMATOCRIT 27.7 % (42.0-52.0); HEMOGLOBIN 9.1 g/dl (14.0-18.0); LYMPHOCYTES # 1.1 10^3/ul (0.8-2.9); LYMPHOCYTES % 13.9 % (15.0-51.0); MEAN CORPUSCULAR HEMOGLOBIN 30.7 pg (29.0-33.0); MEAN CORPUSCULAR HGB CONC 32.9 g/dl (32.0-37.0); MEAN CORPUSCULAR VOLUME 93.6 fl (82.0-101.0); MEAN PLATELET VOLUME 9.1 fl (7.4-10.4); MONOCYTE # 0.7 10^3/ul (0.3-0.9); MONOCYTES % 8.8 % (0.0-11.0); NEUTROPHIL # 5.5 10^3/ul (1.6-7.5); NEUTROPHILS % 66.7 % (39.0-77.0); PLATELET COUNT 375 10^3/UL (140-415); RED BLOOD COUNT 2.96 10^6/ul (4.70-6.10); RED CELL DISTRIBUTION WIDTH 13.7 % (11.5-14.5)
[2018-02-10 07:40] LABS: ANION GAP 4 (5-13); BLOOD UREA NITROGEN 22 mg/dl (7-20); CALCIUM 8.5 mg/dl (8.4-10.2); CARBON DIOXIDE 28 mmol/L (21-31); CHLORIDE 107 mmol/L (97-110); CREATININE 0.99 mg/dl (0.61-1.24); GLUCOSE 78 mg/dl (70-220); POTASSIUM 4.3 mmol/L (3.5-5.1); SODIUM 139 mmol/L (135-144)
[2018-02-10] MEDS: INSULIN ASPART [NOVOLOG] 3 ML PEN SC ×8 (08:00→21:00)
[2018-02-10] MEDS: NPH, HUMAN INSULIN ISOPHANE 3ML VIAL SC ×2 (08:57→20:00)
[2018-02-10] MEDS: FAMOTIDINE 20 MG TAB PO ×2 (08:59→20:42)
[2018-02-10] MEDS: DOCUSATE SODIUM 100 MG CAP PO ×2 (08:59→20:52)
[2018-02-10] MEDS: AMLODIPINE 2.5 MG TAB PO (08:59)
[2018-02-10] MEDS: LITHIUM CARBONATE 150 MG CAP PO (08:59)
[2018-02-10] MEDS: LISINOPRIL 10 MG TAB PO ×2 (09:00→20:42)
[2018-02-10] MEDS: ASPIRIN 81 MG TAB PO (09:01)
[2018-02-10] MEDS: ATENOLOL 25 MG TAB PO (09:27)
[2018-02-10] MEDS: LACTATED RINGER'S 1,000 ML IV ×2 (10:30→12:37)
[2018-02-10] MEDS: CEFTRIAXONE 1 GM/50 ML (PMX) 50 ML IVPB (16:50)
[2018-02-10] MEDS: ATORVASTATIN 40 MG TAB PO (20:42)
[2018-02-11] MEDS: ACCU-CHEK XX ×4 (00:06→20:43)
[2018-02-11] MEDS: LACTATED RINGER'S 1,000 ML IV (06:30)
[2018-02-11] MEDS: INSULIN ASPART [NOVOLOG] 3 ML PEN SC ×5 (08:00→20:47)
[2018-02-11] MEDS: LITHIUM CARBONATE 150 MG CAP PO (08:42)
[2018-02-11] MEDS: LISINOPRIL 10 MG TAB PO (08:45)
[2018-02-11] MEDS: FAMOTIDINE 20 MG TAB PO ×2 (08:45→20:44)
[2018-02-11] MEDS: AMLODIPINE 2.5 MG TAB PO (08:45)
[2018-02-11] MEDS: DOCUSATE SODIUM 100 MG CAP PO ×2 (08:45→20:44)
[2018-02-11] MEDS: ASPIRIN 81 MG TAB PO (08:45)
[2018-02-11] MEDS: ATENOLOL 25 MG TAB PO (08:46)
[2018-02-11] MEDS: NPH, HUMAN INSULIN ISOPHANE 3ML VIAL SC (08:57)
[2018-02-11] MEDS: metFORMIN 500 MG TAB PO ×2 (11:38→17:10)
[2018-02-11] MEDS: FINASTERIDE 5 MG TAB PO (11:38)
[2018-02-11] MEDS ORDERED: CEPHALEXIN 500 MG CAP PO (14:00)
[2018-02-11] MEDS: MAGNESIUM HYDROXIDE 30ML CUP PO (15:55)
[2018-02-11] MEDS: CEFTRIAXONE 1 GM/50 ML (PMX) 50 ML IVPB (15:58)
[2018-02-11] MEDS: ATORVASTATIN 40 MG TAB PO (20:44)
[2018-02-12] MEDS: ACCU-CHEK XX ×2 (02:41→11:42)
[2018-02-12] MEDS: ASPIRIN 81 MG TAB PO (08:51)
[2018-02-12] MEDS: LITHIUM CARBONATE 150 MG CAP PO (08:51)
[2018-02-12] MEDS: LISINOPRIL 20 MG TAB PO (08:51)
[2018-02-12] MEDS: DOCUSATE SODIUM 100 MG CAP PO (08:51)
[2018-02-12] MEDS: metFORMIN 500 MG TAB PO (08:52)
[2018-02-12] MEDS: FINASTERIDE 5 MG TAB PO (08:52)
[2018-02-12] MEDS: ATENOLOL 25 MG TAB PO (08:52)
[2018-02-12] MEDS: FAMOTIDINE 20 MG TAB PO (08:52)
[2018-02-12] MEDS: INSULIN ASPART [NOVOLOG] 3 ML PEN SC ×2 (08:54→12:49)
[2018-02-12] MEDS: MAGNESIUM HYDROXIDE 30ML CUP PO (10:54)
[2018-02-12] MEDS ORDERED: NPH, HUMAN INSULIN ISOPHANE 3ML VIAL SC (17:30)
[2018-02-12] MEDS ORDERED: TERAZOSIN 1 MG CAP PO (21:00)
== END 2018-02-12 15:45 | disposition home or self-care (01) | DRG 854 ==
LOC: 5EC 02-09 12:07 → E/R 23:11 → 6WM 02-07 01:22 → PP2 02-07 18:09
PROVIDERS: Internal Medicine
PROC: 0VT08ZZ Resection of Prostate, Via Natural or Artificial Opening Endoscopic (ICD-10-PCS; principal; 2018-02-08 12:26)
PROC: 0TJB8ZZ Inspection of Bladder, Via Natural or Artificial Opening Endoscopic (ICD-10-PCS; 2018-02-08 12:26)
PROC: 30233N1 Transfusion of Nonautologous Red Blood Cells into Peripheral Vein, Percutaneous Approach (ICD-10-PCS; 2018-02-08 12:26)
DX: A41.9 Sepsis, unspecified organism (principal); N39.0 Urinary tract infection, site not specified; N40.1 Benign prostatic hyperplasia with lower urinary tract symptoms; R33.8 Other retention of urine; I10 Essential (primary) hypertension; I25.10 Atherosclerotic heart disease of native coronary artery without angina pectoris; F31.9 Bipolar disorder, unspecified; D64.9 Anemia, unspecified; R31.0 Gross hematuria; E11.65 Type 2 diabetes mellitus with hyperglycemia; Z95.5 Presence of coronary angioplasty implant and graft; R39.14 Feeling of incomplete bladder emptying; B96.1 Klebsiella pneumoniae [K. pneumoniae] as the cause of diseases classified elsewhere
CPT/HCPCS: 36430; 71045; 80048; 80053; 80178; 81001; 82962; 83036; 83605; 84484; 85025; 85610; 85730; 86644; 86850; 86900; 86901; 86920; 87040; 87081; 87086; 88305; 93005; 97110; 97116; 97162; 97530

== ENCOUNTER 2018-03-16 12:41 | Inpatient (IN) | payer MEDICARE, OTHER ==
[2018-03-16] MEDS: LIDOCAINE 2% JEL.PF.APP 5 ML UROJET SYRINGE MM (13:09)
[2018-03-16 13:24] LABS: ADD MAN DIFF? NO
[2018-03-16 13:27] LABS: BASOPHIL # 0.1 10^3/ul (0.0-0.1); BASOPHILS % 0.3 % (0.0-2.0); HEMATOCRIT 36.8 % (42.0-52.0); HEMOGLOBIN 11.8 g/dl (14.0-18.0); LYMPHOCYTES # 0.6 10^3/ul (0.8-2.9); LYMPHOCYTES % 3.6 % (15.0-51.0); MEAN CORPUSCULAR HEMOGLOBIN 29.7 pg (29.0-33.0); MEAN CORPUSCULAR HGB CONC 32.1 g/dl (32.0-37.0); MEAN CORPUSCULAR VOLUME 92.7 fl (82.0-101.0); MEAN PLATELET VOLUME 9.1 fl (7.4-10.4); MONOCYTES % 5.6 % (0.0-11.0); NEUTROPHIL # 15.4 10^3/ul (1.6-7.5); NEUTROPHILS % 89.9 % (39.0-77.0); PLATELET COUNT 463 10^3/UL (140-415); RED BLOOD COUNT 3.97 10^6/ul (4.70-6.10); RED CELL DISTRIBUTION WIDTH 12.9 % (11.5-14.5)
[2018-03-16 13:27] LABS: WHITE BLOOD COUNT 17.1 10^3/ul (4.8-10.8)
[2018-03-16] MEDS ORDERED: HYDROmorphONE 0.5 MG/0.5 ML SYG (13:36)
[2018-03-16 13:43] LABS: ANION GAP 13 (5-13); BLOOD UREA NITROGEN 25 mg/dl (7-20); CARBON DIOXIDE 18 mmol/L (21-31); CHLORIDE 108 mmol/L (97-110); CREATININE 1.57 mg/dl (0.61-1.24); POTASSIUM 5.1 mmol/L (3.5-5.1); SODIUM 139 mmol/L (135-144)
[2018-03-16] MEDS: HYDROmorphONE 0.5 MG/0.5 ML SYG IV ×2 (13:43→15:27)
[2018-03-16 13:50] LABS: GLUCOSE 411 mg/dl (70-220)
[2018-03-16 13:52] LABS: INR 0.89; PROTIME 12.2 Sec (11.9-14.9)
[2018-03-16 13:53] LABS: PARTIAL THROMBOPLASTIN TIME 21.3 Sec (23.0-35.0)
[2018-03-16] MEDS: SOD CHLORIDE 0.9% 920 ML IV (14:01)
[2018-03-16 14:13] LABS: PHOSPHORUS 3.9 mg/dl (2.5-4.9)
[2018-03-16 14:13] LABS: MAGNESIUM 1.7 mg/dl (1.7-2.5)
[2018-03-16 14:51] LABS: MODE ROOM AIR; MetHgb Venous 0.3 %; Sample Type Blood venous; Site VENOUS LINE; Venous COHb 0.6 %; Venous Fraction OxyHgb 51.7 %; Venous Oxygen Sat 52.2 mmHG (55.0-75.0); Venous Total Hemglobin 11.9 g/dl
[2018-03-16 15:16] LABS: ADD UMIC YES; UR ASCORBIC ACID NEGATIVE (NEGATIVE); UR BACTERIA FEW /HPF (NONE SEEN); UR BILIRUBIN (Dip) NEGATIVE (NEGATIVE); UR BLOOD (Dip) 3+ mg/dL (NEGATIVE); UR CLARITY CLOUDY (CLEAR); UR COLOR RED (YELLOW); UR GLUCOSE (Dip) 1+ mg/dL (NEGATIVE); UR KETONES (Dip) NEGATIVE (NEGATIVE); UR LEUKOCYTE ESTERASE (Dip) 3+ Leu/ul (NEGATIVE); UR NITRITE (Dip) NEGATIVE (NEGATIVE); UR RBC > 182 /HPF (0-5); UR SPECIFIC GRAVITY (Dip) 1.004 (1.003-1.030); UR TOTAL PROTEIN (Dip) 2+ mg/dl (NEGATIVE); UR UROBILINOGEN (Dip) NEGATIVE (NEGATIVE); UR WBC > 182 /HPF (0-5)
[2018-03-16] MEDS: INSULIN LISPRO 100 UNIT/ML VIAL SC (15:17)
[2018-03-16] MEDS: CEFTRIAXONE 1 GM/50 ML (PMX) 50 ML IVPB (15:27)
[2018-03-16] MEDS ORDERED: ONDANSETRON 4 MG INJ IV (15:30)
[2018-03-16] MEDS ORDERED: ACETAMINOPHEN 325 MG TAB PO (15:30)
[2018-03-16 16:11] LABS: ADD MAN DIFF? NO
[2018-03-16 16:16] LABS: WHITE BLOOD COUNT 13.5 10^3/ul (4.8-10.8)
[2018-03-16 16:16] LABS: ABNORMAL IP MESSAGE 1; BASOPHILS % 0.1 % (0.0-2.0); HEMATOCRIT 32.2 % (42.0-52.0); HEMOGLOBIN 10.3 g/dl (14.0-18.0); LYMPHOCYTES # 0.3 10^3/ul (0.8-2.9); LYMPHOCYTES % 2.1 % (15.0-51.0); MEAN CORPUSCULAR HEMOGLOBIN 30.2 pg (29.0-33.0); MEAN CORPUSCULAR VOLUME 94.4 fl (82.0-101.0); MEAN PLATELET VOLUME 8.9 fl (7.4-10.4); MONOCYTE # 0.7 10^3/ul (0.3-0.9); MONOCYTES % 5.5 % (0.0-11.0); NEUTROPHIL # 12.5 10^3/ul (1.6-7.5); PLATELET COUNT 334 10^3/UL (140-415); POSITIVE DIFF @See below; RED BLOOD COUNT 3.41 10^6/ul (4.70-6.10); RED CELL DISTRIBUTION WIDTH 13.1 % (11.5-14.5)
[2018-03-16 16:42] LABS: ANION GAP 10 (5-13); BLOOD UREA NITROGEN 26 mg/dl (7-20); CALCIUM 9.2 mg/dl (8.4-10.2); CARBON DIOXIDE 21 mmol/L (21-31); CHLORIDE 108 mmol/L (97-110); CREATININE 1.54 mg/dl (0.61-1.24); GLUCOSE 349 mg/dl (70-220); POTASSIUM 4.8 mmol/L (3.5-5.1); SODIUM 139 mmol/L (135-144)
[2018-03-16] MEDS ORDERED: INSULIN ASPART [NOVOLOG] 3 ML PEN SC (17:00)
[2018-03-16] MEDS ORDERED: GLUCOSE GEL 15 GRAM TUBE BUCCAL ×2 (17:30→20:00)
[2018-03-16] MEDS ORDERED: DEXTROSE 50% 50 ML SYRINGE IV ×4 (17:30→20:00)
[2018-03-16] MEDS ORDERED: GLUCAGON 1 MG INJ IM ×2 (17:30→20:00)
[2018-03-16] MEDS ORDERED: GLUCOSE GEL 15 GRAM TUBE PO ×4 (17:30→20:00)
[2018-03-16] MEDS: INSULIN ASPART [NOVOLOG] 3 ML PEN SC (21:00)
[2018-03-16] MEDS: INSULIN GLARGINE [LANTus] (100 UNITS/ML) SYG SC (21:08)
[2018-03-17] MEDS: ACCU-CHEK XX (01:07)
[2018-03-17] MEDS ORDERED: ACCU-CHEK XX (02:00)
[2018-03-17 06:21] LABS: ADD MAN DIFF? NO
[2018-03-17 06:27] LABS: BASOPHILS % 0.3 % (0.0-2.0); EOSINOPHILS # 0.1 10^3/ul (0.0-0.5); EOSINOPHILS % 1.1 % (0.0-7.0); HEMATOCRIT 31.2 % (42.0-52.0); HEMOGLOBIN 9.8 g/dl (14.0-18.0); LYMPHOCYTES # 1.2 10^3/ul (0.8-2.9); LYMPHOCYTES % 11.1 % (15.0-51.0); MEAN CORPUSCULAR HEMOGLOBIN 29.8 pg (29.0-33.0); MEAN CORPUSCULAR HGB CONC 31.4 g/dl (32.0-37.0); MEAN CORPUSCULAR VOLUME 94.8 fl (82.0-101.0); MEAN PLATELET VOLUME 9.3 fl (7.4-10.4); MONOCYTE # 1.1 10^3/ul (0.3-0.9); MONOCYTES % 10.1 % (0.0-11.0); NEUTROPHIL # 8.3 10^3/ul (1.6-7.5); NEUTROPHILS % 77.1 % (39.0-77.0); PLATELET COUNT 351 10^3/UL (140-415); RED BLOOD COUNT 3.29 10^6/ul (4.70-6.10); RED CELL DISTRIBUTION WIDTH 13.3 % (11.5-14.5)
[2018-03-17 06:27] LABS: WHITE BLOOD COUNT 10.8 10^3/ul (4.8-10.8)
[2018-03-17 06:39] LABS: ANION GAP 5 (5-13); BLOOD UREA NITROGEN 21 mg/dl (7-20); CALCIUM 9.8 mg/dl (8.4-10.2); CARBON DIOXIDE 28 mmol/L (21-31); CHLORIDE 109 mmol/L (97-110); CREATININE 1.08 mg/dl (0.61-1.24); GLUCOSE 107 mg/dl (70-220); POTASSIUM 4.8 mmol/L (3.5-5.1); SODIUM 142 mmol/L (135-144)
[2018-03-17] MEDS: INSULIN ASPART [NOVOLOG] 3 ML PEN SC ×4 (08:00→20:38)
[2018-03-17 11:24] LABS: HEMATOCRIT 33.7 % (42.0-52.0); HEMOGLOBIN 10.8 g/dl (14.0-18.0)
[2018-03-17] MEDS: CEFTRIAXONE 1 GM/50 ML (PMX) 50 ML IVPB (13:33)
[2018-03-17] MEDS: TERAZOSIN 1 MG CAP PO (20:35)
[2018-03-17] MEDS: INSULIN GLARGINE [LANTus] (100 UNITS/ML) SYG SC (20:39)
[2018-03-17 21:20] LABS: HEMATOCRIT 31.2 % (42.0-52.0)
[2018-03-18] MEDS: ACCU-CHEK XX (02:00)
[2018-03-18] MEDS: INSULIN ASPART [NOVOLOG] 3 ML PEN SC ×8 (07:58→20:49)
[2018-03-18 10:35] LABS: HEMATOCRIT 30.5 % (42.0-52.0); HEMOGLOBIN 9.8 g/dl (14.0-18.0)
[2018-03-18] MEDS: CEFTRIAXONE 1 GM/50 ML (PMX) 50 ML IVPB (13:58)
[2018-03-18] MEDS: INSULIN GLARGINE [LANTus] (100 UNITS/ML) SYG SC (20:49)
[2018-03-18] MEDS: TERAZOSIN 2 MG CAP PO (20:50)
[2018-03-18 21:29] LABS: HEMATOCRIT 33.1 % (42.0-52.0); HEMOGLOBIN 10.5 g/dl (14.0-18.0)
[2018-03-19] MEDS: ACCU-CHEK XX (02:00)
[2018-03-19] MEDS: INSULIN ASPART [NOVOLOG] 3 ML PEN SC ×4 (07:59→21:02)
[2018-03-19] MEDS: CEFTRIAXONE 1 GM/50 ML (PMX) 50 ML IVPB (13:50)
[2018-03-19] MEDS: INSULIN GLARGINE [LANTus] (100 UNITS/ML) SYG SC (21:03)
[2018-03-19] MEDS: TERAZOSIN 1 MG CAP PO (22:00)
[2018-03-20] MEDS: ACCU-CHEK XX (02:00)
[2018-03-20] MEDS: INSULIN ASPART [NOVOLOG] 3 ML PEN SC ×2 (08:00→12:01)
[2018-03-20] MEDS: CEFTRIAXONE 1 GM/50 ML (PMX) 50 ML IVPB (10:08)
== END 2018-03-20 13:30 | disposition home or self-care (01) | DRG 872 ==
LOC: PP2 03-17 11:04 → E/R 12:41 → PP2 17:48
DX: A41.59 Other Gram-negative sepsis (principal); R33.9 Retention of urine, unspecified; E11.65 Type 2 diabetes mellitus with hyperglycemia; I25.10 Atherosclerotic heart disease of native coronary artery without angina pectoris; Z95.5 Presence of coronary angioplasty implant and graft; I10 Essential (primary) hypertension; E78.5 Hyperlipidemia, unspecified; F31.9 Bipolar disorder, unspecified; Z60.2 Problems related to living alone; N40.0 Benign prostatic hyperplasia without lower urinary tract symptoms; Z90.79 Acquired absence of other genital organ(s); N30.81 Other cystitis with hematuria; Z79.4 Long term (current) use of insulin
CPT/HCPCS: 36415; 76856; 80048; 81001; 82803; 82962; 83735; 84100; 85014; 85018; 85025; 85610; 85730; 87040; 87081; 87086; 96372; 96374; 99285-25